=== PATIENT | female | born 1960 | race Caucasian/White ===

== ENCOUNTER 2019-02-14 00:09 | Emergency (ER) | payer MEDICARE, MEDICAID ==
[~2019-02-14] VITALS: Ht 157.5 cm; Wt 66.2 kg
[~2019-02-14 00:09] MED LIST: A-B OTIC EAR DR15 ML OT; ACETAMINOPHEN-1 EAC1 PO; ADULT LOW DOSE81 MG PO; ADVAIR 250-501 EACH INH; ADVAIR HFA 1112 UNIT INH; ALPRAZOLAM 0.50.5 M1 PO; AMBIEN 5 MG TABL5 M1 PO; AMOXICILLIN500 M1 PO; AMOXICILLIN875 MG PO; AUGMENTIN 500-1 EACH PO; CEPHALEXIN 500500 M3 PO; CIPRO250 M1 PO; COUMADIN 3 MG TA3 MG NG; COUMADIN 5 MG TA5 M1 PO; CRESTOR20 MG PO; CYMBALTA60 MG PO; FENTANYL 1100 MCG/HR TP; FENTANYL PA50 MCG/HR TP; GABAPENTIN800 MG PO; GLAUCOMA GTTS; HYDROCODONE-AP1 EAC6 PO; INVOKANA100 MG; LANTUS SC; LIORESAL 10 MG10 MG PO; LISINOPRIL5 MG PO; METHADONE HCL5 MG PO; NEURONTIN 300300 M1; NEURONTIN 400400 M1 PO; NOVOLOG100 UNIT/1 SQ; OXYCONTIN80 MG PO; PERCOCET; PERCOCET 5-3251 EACH; PERCOCET 7.5-31 EACH PO; PLAVIX 75 MG TA75 MG PO; PRAVACHOL20 MG PO; PREDNISONE 20 M20 MG PO; PRINIVIL5 MG PO; PROAIR HFA8.5 GM INH; PROMETHAZINE D480 ML PO; SINGULAIR 4 MG C4 M1 PO; TEGRETOL XR100 MG PO; TRAZODONE 100100 MG PO; TRAZODONE HCL50 MG PO; TRILEPTAL PO; XARELTO20 MG PO; ZPAK PO
[2019-02-14] MEDS ORDERED: JARDIANCE10 MG PO (00:21)
[2019-02-14] MEDS ORDERED: TRESIBA100 UNIT/1 SUBQ (00:21)
[2019-02-14] MEDS ORDERED: MACROBID 100 M100 MG PO (00:29)
[2019-02-14 00:54] LABS: URINE BILIRUBIN NEGATIVE (Negative); URINE BLOOD TRACE (Negative); URINE CLARITY CLEAR; URINE COLOR YELLOW; URINE GLUCOSE-RANDOM 3+ (Negative); URINE KETONES NEGATIVE (Negative); URINE LEUKOCYTES-REFLEX TRACE (Negative); URINE NITRITE-REFLEX NEGATIVE (Negative); URINE PROTEIN NEGATIVE (Negative); URINE SPECIFIC GRAVITY >= 1.030 (1.005-1.030)
[2019-02-14 01:02] LABS: MUCUS None Seen strn/LPF (None Seen); SQUAMOUS >10 Many /LPF (0-3)
[2019-02-14 01:03] LABS: CALCIUM OXALATE >10 Many /LPF (None Seen); URINE WBC-REFLEX >25 Many /HPF (0-5)
[2019-02-14 01:04] LABS: BACTERIA-REFLEX 1-9 Few /HPF (None Seen); CASTS None Seen /LPF (None Seen); URINE RBC 0-2 Rare /HPF (0-2); YEAST-REFLEX Present (None Seen)
[2019-02-14 01:13] VITALS: BP 133/68
== END 2019-02-14 01:13 | disposition home or self-care (01) ==
LOC: M.ERS 00:09
PROVIDERS: Emergency Medicine
DX: N39.0 Urinary tract infection, site not specified (principal); E11.9 Type 2 diabetes mellitus without complications; J44.9 Chronic obstructive pulmonary disease, unspecified; R82.90 Unspecified abnormal findings in urine; Z88.8 Allergy status to other drugs, medicaments and biological substances; Z88.5 Allergy status to narcotic agent; Z88.2 Allergy status to sulfonamides; Z90.49 Acquired absence of other specified parts of digestive tract; Z79.4 Long term (current) use of insulin

== ENCOUNTER → 2019-05-21 | Outpatient (CLI) | payer MEDICARE, MEDICAID ==
[~2019-05-21] MED LIST changes: +JARDIANCE10 MG PO; +MACROBID 100 M100 MG PO; +TRESIBA100 UNIT/1 SUBQ
--- NOTE | 2019-05-21 16:24 | CARDNUC ---
[place] [address] CARDIAC NUCLEAR IMAGING REPORT Name: EMMA DOBBINS Room: [facility]#: [id number] Admission: 05/21/19 Attend Phys: Marielle Waldrop, Discharge: Date of : 60 Date of Service: 05/21/19 1624 Report #: [id number] THIS REPORT FOR: //name// APPROVED REPORT Study performed: 05/21/2019 09:44:06 Indication: Chest pain Patient Location: Out-Patient Stress Tech: Natali Kent Stress Nurse: Sinai Hi RN Ht: 5 ft 2 in Wt: 148 lbs BSA: 1.68 m2 BMI: 27.06 Medical History Medical History: Angina, Diabetic Insulin, Fatigue, Former Smoker, HTN, Hyperlipidemia, PVD, AKA. Medications: Plavix, Pravastatin, Xarelto, Insulin. Allergies: Lidocaine, Morphine. Cardiac Risk Factors: Age, Current Smoker, Diabetes (insulin), FHX of CAD, HTN, Hyperlipidemia, Smoking, PVD. Previous Cardiac Procedures: None Pretest Chest Pain Characteristics: No chest pain Exercise History: Sedentary Physical Disabilities: AKA Meds Held (24 hrs): None Resting Data Rest SPECT myocardial perfusion imaging was performed in supine position 30 minutes following the intravenous injection of 11.0 mCi of Tc-99m Sestamibi. Time of rest injection: 08:20 The images were gated to evaluate regional wall motion and calculate left ventricular ejection fraction. Administration Route: IV Administration Site: Right Hand Pharmacologic Stress Pharmacologic stress test was performed by injecting Regadenoson 0.4 mg IV push over 10-15 seconds immediately followed by the intravenous injection of 33.7 mCi of Tc-99m Sestamibi. Time of stress injection: 09:40 Administration Route: IV Administration Site: [place] [address] CARDIAC NUCLEAR IMAGING REPORT Name: EMMA DOBBINS Room: [facility]#: [id number] Admission: 05/21/19 Attend Phys: SinaIrlanda Tres Waldrop, Discharge: Date of : 60 Date of Service: 05/21/19 1624 Report #: [id number] Heart Rate at time of stress injection: 89 bpm. Gated Stress SPECT was performed 45 minutes after stress injection. The images were gated to evaluate regional wall motion and calculate left ventricular ejection fraction. Stress Test Details Stress Test: Pharmacologic stress testing performed using 0.4 mg of regadenoson per 5 mL given IV over 10 seconds. Reason for pharmacologic stress test: AKA. HR Max Heart Rate (APMHR): 161 bpm Resting HR: 83 bpm Target HR (85% APMHR): 136 bpm Max HR Achieved: 93 bpm % of APMHR: 57 Recovery HR: 87 bpm BP Resting BP: 157/86 mmHg Max BP: 148/85 mmHg Recovery BP: 131/75 mmHg ECG Resting ECG: Sinus Rhythm Stress ECG: Sinus Rhythm ST Change: None Arrhythmia: None Recovery ECG: Sinus Rhythm Recovery ST Change: None Recovery Arrhythmia: None Clinical Reason for Termination: Completed protocol Stress Symptoms: Headache Exercise duration: 00 min 00 sec Exercise capacity: 1.00 METs The patient tolerated Lexiscan infusion without significant cardiac symptoms. Nurse Comments A 59 year old female presented in wheelchair r/t AKA c/o recent CP. Patient tolerated sitting Lexiscan well. Recovery unremarkable with PO caffeine, effective. Patient was escorted via wheelchair by staff to Nuclear Medicine for images. Patient was stable with no complaints at [place] [address] CARDIAC NUCLEAR IMAGING REPORT Name: MUEMMA Room: [facility]#: [id number] Admission: 05/21/19 Attend Phys: SinaIrlanda Tres Wladrop, Discharge: Date of : 60 Date of Service: 05/21/19 1624 Report #: [id number] The baseline 12-lead EKG show sinus rhythm without significant ST or T wave abnormality. EKGs obtained during and post Lexiscan infusion show sinus rhythm with no significant ST or T wave changes when compared baseline. There were no stress-induced arrhythmias. Study Quality Study: Good Artifact: No artifact Study Data At rest, the left ventricular ejection fraction was 66%.. Post stress, the left ventricular ejection was 75%.. TID = 0.76. Perfusion Normal left ventricular perfusion. Wall Motion Normal left ventricular wall motion. Nuclear Conclusion ECG Findings: negative for ischemia Clinical Findings: negative for ischemia Nuclear Findings: negative for ischemia Exercise Capacity: not assessed Left Ventricular Function: normal Risk Study: low Myocardial perfusion images show no defect to suggest infarct or ischemia. Left ventricular systolic function is normal on gated studies. This is a low risk study. <Conclusion> The baseline 12-lead EKG show sinus rhythm without significant ST or T wave abnormality. EKGs obtained during and post Lexiscan infusion show sinus rhythm with no significant ST or T wave changes when compared baseline. There were no stress-induced arrhythmias. <ELECTRONICALLY SIGNED> By: Benito Plummer MD, FACC 05/21/19 1624 1624 1624 Benito Plummer MD, FACC /INF
== END ==
LOC: M.NUC 05-03 08:56
DX: R07.2 Precordial pain (principal); E11.51 Type 2 diabetes mellitus with diabetic peripheral angiopathy without gangrene; F32.9 Major depressive disorder, single episode, unspecified; Z79.899 Other long term (current) drug therapy; Z86.718 Personal history of other venous thrombosis and embolism; Z87.891 Personal history of nicotine dependence; Z79.4 Long term (current) use of insulin

== ENCOUNTER → 2019-06-03 | Outpatient (CLI) | payer MEDICARE, MEDICAID ==
--- NOTE | 2019-06-03 09:11 | 2DMMODE ---
[place] [address] 2 D/M-MODE ECHOCARDIOGRAM Name: MUEMMA Room: [facility]#: [id number] Admission: 06/03/19 Attend Phys: Marielle Waldrop, Discharge: Date of : 60 Date of Service: 06/03/19 0911 Report #: [id number] THIS REPORT FOR: //name// APPROVED REPORT Study performed: 06/03/2019 08:17:53 EXAM: Comprehensive 2D, Doppler, and color-flow Echocardiogram Patient Location: Out-Patient BSA: 1.72 HR: 94 bpm BP: 120/70 mmHg Other Information Study Quality: Fair Indications Chest Pain 2D Dimensions IVSd: 9.71 (7-11mm) LVOT Diam: 20.19 (18-24mm) LVDd: 41.35 mm PWd: 8.33 (7-11mm) Ascending Ao: 25.65 (22-36mm) LVDs: 18.08 (25-40mm) Aortic Root: 22.82 mm Volumes Left Atrial Volume (Systole) LA ESV Index: 13.10 mL/m2 Aortic Valve AoV Peak Iam.: 1.82 m/s AO Peak Gr.: 13.27 mmHg LVOT Max P.04 mmHg AO Mean Gr.: 6.91 mmHg LVOT Mean P.57 mmHg LVOT Max V: 1.12 m/s AO V2 VTI: 28.14 cm LVOT Mean V: 0.74 m/s JAK (VTI): 2.13 cm2 LVOT V1 VTI: 18.72 cm Mitral Valve E/A Ratio: 0.67 MV Decel. Time: 223.77 ms MV E Max Iam.: 0.54 m/s MV PHT: 64.89 ms MVA (PHT): 3.39 [place] [address] 2 D/M-MODE ECHOCARDIOGRAM Name: MUEMMABERNICE RIDER Room: [facility]#: [id number] Admission: 06/03/19 Attend Phys: Marielle Waldrop, Discharge: Date of : 60 Date of Service: 06/03/19 0911 Report #: [id number] TDI E/Lateral E': 5.40 E/Medial E': 6.75 Medial E' Iam.: 0.08 m/s Lateral E' Iam.: 0.10 m/s Pulmonary Valve PV Peak Iam.: 1.12 m/s PV Peak Gr.: 5.03 mmHg Left Ventricle The left ventricle is normal size. There is normal LV segmental wall motion. There is normal left ventricular wall thickness. Left ventricular systolic function is normal. The left ventricular ejection fraction is within the normal range. LVEF is 60-65%. Grade I - abnormal relaxation pattern. Right Ventricle The right ventricle is normal size. The right ventricular systolic function is normal. Atria The left atrium size is normal. The right atrium size is normal. Aortic Valve Mild aortic valve sclerosis. No aortic regurgitation is present. There is no aortic valvular stenosis. Mitral Valve Mild mitral annular calcification. There is no mitral valve regurgitation noted. No evidence of mitral valve stenosis. Tricuspid Valve The tricuspid valve is normal in structure. There is no tricuspid valve regurgitation noted. Pulmonic Valve The pulmonary valve is normal in structure. There is no pulmonic valvular regurgitation. Great Vessels The aortic root is normal in size. IVC is normal in size and collapses >50% with inspiration. Pericardium There is [place] [address] 2 D/M-MODE ECHOCARDIOGRAM Name: EMMA DOBBINS Room: [facility]#: [id number] Admission: 06/03/19 Attend Phys: Marielle Waldrop, Discharge: Date of : 60 Date of Service: 06/03/19 0911 Report #: [id number] <Conclusion> The left ventricle is normal size. There is normal left ventricular wall thickness. Left ventricular systolic function is normal. The left ventricular ejection fraction is within the normal range. LVEF is 60-65%. Grade I - abnormal relaxation pattern. The right ventricle is normal size. The left atrium size is normal. Mild aortic valve sclerosis. No aortic regurgitation is present. There is no aortic valvular stenosis. Mild mitral annular calcification. There is no mitral valve regurgitation noted. No evidence of mitral valve stenosis. The tricuspid valve is normal in structure. IVC is normal in size and collapses >50% with inspiration. There is no pericardial effusion. There is normal LV segmental wall motion. <ELECTRONICALLY SIGNED> By: Genaro Ybarra MD, FACC 06/03/19910 0 0 Genaro Ybarra MD, FACC /INF
== END ==
LOC: M.CRD 08:00
DX: I08.0 Rheumatic disorders of both mitral and aortic valves (principal)

== ENCOUNTER → 2019-06-12 | Outpatient (CLI) | payer MEDICARE, MEDICAID | LOC: M.RAD 06-04 12:14 | DX: Z12.31 Encounter for screening mammogram for malignant neoplasm of breast (principal); N95.0 Postmenopausal bleeding ==